=== PATIENT | female | born 1935 | race Caucasian/White ===

== ENCOUNTER 2017-02-22 05:03 | Observation (INO) | payer MEDICARE, BC ==
--- NOTE | ~2017-02-22 | DS ---
Discharge Summary [facility] [address] [place]. [address] NAME: MARY ELLEN PAUL : 35 STATUS : DIS Uziel PAT#: [id number] AGE: 81 ADM/REG DATE : 02/22/17 MR#: [id number] REPORT SERV DATE: 02/23/17 DICTATED BY: DATE: REPORT STATUS : Draft TRANSCRIBED BY: MODL DATE: 02/23/17 ADMISSION DATE: 02/22/2017 DISCHARGE DATE: 02/23/2017 DISCHARGE DIAGNOSES: 1. Abdominal pain, question post-herpetic neuralgia. 2. Back pain, question post-herpetic neuralgia. 3. Hyperkalemia. 4. Chronic kidney disease 4. 5. Hypertension. 6. History of coronary artery disease with percutaneous coronary intervention. 7. History of peripheral artery disease. 8. Gout. PROCEDURES AND IMAGIN02/22/2017, CT of the abdomen and pelvis without contrast showed gallstones, cardiomegaly, coronary artery disease. Questionable aortic stenosis. Small hiatal hernia. Diverticulosis. No acute pathology seen. HOSPITAL COURSE: Please refer to Dr. Arin Almanzar' H and P dated 02/22/2017 for complete details regarding the patient's admission. In brief, the patient was admitted by Dr. Almanzar for initial workup and management of her abdominal pain and back pain. The patient has had a history of shingles on her right abdomen and right back. The patient has completed a course of Valtrex. The patient has had oxycodone and hydrocodone during the night as well as the patient was started on Elavil 10 mg. The patient states that today she is pain-free. It was noted during her admission that her potassium was elevated up to 5.9. This morning, it is 4.6. For her elevated potassium, the patient was given regular insulin with D50 as well as Kayexalate and this problem has resolved. We will be discontinuing the patient's potassium supplement at home. The patient has also been on Avalide at home for her high blood pressure. At present, we are changing the patient to amlodipine due to her hyperkalemia and her chronic kidney disease stage 4. We are giving her prescription for three days and making an appointment with Dr. Wei Anderson for followup. The patient's blood pressure has been well controlled during her stay with the amlodipine which was initiated on 02/22/2017 with blood pressures between 116 to 166 over 58 to 71. The patient has had no complaints of chest pain during her stay. PHYSICAL EXAMINATION: VITAL SIGNS: Blood pressure is 155/66, temp is 97.7, O2 saturation is 97% on room, respirations are 17, heart rate is 64. HEENT: Head is atraumatic, normocephalic. Pupils are equal, round, and reactive to light and accommodation. Sclerae are clear and nonicteric. No palpable lymphadenopathy. NECK: Neck is supple with no obvious thyromegaly or lymphadenopathy. CARDIAC: No obvious rubs or gallops. The patient has a grade 3/6 systolic murmur. LUNGS: Clear to auscultation with normal respiratory effort. GI: Abdomen is soft and nontender with active bowel sounds in all four quadrants. The patient has normal bowel habitus. No palpable organomegaly. Discharge Summary [address] [place]. [address] NAME: MARY ELLEN PAUL : 35 STATUS : DIS Uziel PAT#: [id number] AGE: 81 ADM/REG DATE : 02/22/17 MR#: [id number] REPORT SERV DATE: 02/23/17 DICTATED BY: DATE: REPORT STATUS : Draft TRANSCRIBED BY: ORLANOD DATE: 02/23/17 EXTREMITIES: No significant edema, clubbing, or cyanosis. Dorsalis pedis and posterior tibial pulses are palpable bilaterally. MUSCULOSKELETAL: Moves all extremities x4. She is ambulatory with assistance. SKIN: Skin is warm and dry with normal color and turgor. The patient has scabs along her right mid back and under her right breast with small amount of oozing. Otherwise, the patient has yellow crusts. NEURO/PSYCH: The patient is alert and oriented x4, pleasant and cooperative. Cranial nerves II through XII are grossly intact. Affect is bright. No apparent anxiety or depression. DISCHARGE MEDICATIONS: Elavil 10 mg p.o. at bedtime, Norvasc 5 mg daily, Coreg 6.25 mg twice daily, Plavix 75 mg daily, folic acid 1 mg daily, Lopid 600 mg daily, pravastatin 40 mg daily, Centrum tablet once daily, gabapentin 100 mg starting 100 mg today and then increased to twice daily with breakfast and supper, and use Elavil at bedtime. The patient is to use twice daily for week and if no side affects, and if it is not controlling her pain, she can increase to three tablets daily as prescribed by Dr. Wei Anderson. It has been discussed with the family that if the patient is feeling bad and taking it three times a day, do not stop the medication, just cut back to twice daily. This has been extensively discussed with the patient and the daughter. It has also been discussed with the patient and the daughter that she should avoid contact with her grandchildren for another week until her scab quit oozing. The patient is to avoid contact with the granddaughter until the majority of her scabs are gone. ALLERGIES: THE PATIENT HAS NO KNOWN DRUG ALLERGIES. DISCHARGE INSTRUCTIONS: The patient is to follow up with her PCP, Dr. Wei Anderson in three days. Should the patient have any more exacerbated pain in her abdomen or mid back or any side effects from her medications or increase in blood pressure, she is to call her PCP or present to the ER. Approximately 30 minutes has been spent coordinating discharge care of this patient including [id number] encounter and summarization to her PCP. SLC/MODL Roseanna Galvez NP / [id number] CC: Victorino Hoyt M.D. Dannis Hood Jr., M.D.
--- NOTE | ~2017-02-22 | HP ---
History And Physical [place] [address] [place]. [address] NAME: MARY ELLEN PAUL : 35 STATUS : ADM Uziel PAT#: [id number] AGE: 81 ADM/REG DATE : 02/22/17 MR#: [id number] REPORT SERV DATE: 02/22/17 DICTATED BY: AINSLEY ALMANZAR DATE: 02/22/17 REPORT STATUS : Draft TRANSCRIBED BY: ORLANDO DATE: 02/22/17 DATE OF ADMISSION: 02/22/2017 CHIEF COMPLAINT: Abdominal pain. Back pain. HISTORY OF PRESENT ILLNESS: The patient is a very pleasant 81-year-old white female with a multitude of medical problems. She presents with stabbing sharp pain in her right abdomen and right side of her back. She had a previous episode of shingles that is still crusting over but she was treated with Valtrex. She states the pain is electrical or stabbing in quality. She previously was taking some narcotics for the pain but she has been off these since this past Wednesday. She really has no other complaints. She has had no diarrhea. No nausea, vomiting, or fever. She has had no cough. No shortness of breath. She had her last bowel movement yesterday which was normal. PAST MEDICAL HISTORY: 1. GERD. 2. Osteoarthritis. 3. CAD with history of PTCI. 4. Hypertension. 5. Gout. 6. Ulcers. 7. Nephrolithiasis. 8. CKD with baseline creatinine of around 1.7. 9. Diabetes mellitus. 10.Gallstones. 11.Recent shingles. FAMILY HISTORY: Positive for CAD, RA, and diabetes. SOCIAL HISTORY: She is a nondrinker, nonsmoker. She lives with her daughter. PAST SURGICAL HISTORY: She has had bilateral total knee arthroplasties, a CEA, and tonsillectomy. ALLERGIES: NO KNOWN DRUG ALLERGIES. HOME MEDICATIONS: Reviewed and attached. REVIEW OF SYSTEMS: Full 10-point review of systems obtained. Pertinent positives mentioned in the HPI. PHYSICAL EXAMINATION: VITAL SIGNS: Blood pressure was initially 233/112, on followup, it is 160s over 80s, temperature 97.9, pulse 75, respiratory rate 16, and sats 98%. GENERAL: Well-developed white female. HEENT: Normocephalic, atraumatic. Throat is clear. History And Physical [place] [id number] [place]. [address] NAME: MARY ELLEN PAUL : 35 STATUS : ADM Uziel PAT#: [id number] AGE: 81 ADM/REG DATE : 02/22/17 MR#: [id number] REPORT SERV DATE: 02/22/17 DICTATED BY: AINSLEY ALMANZAR DATE: 02/22/17 REPORT STATUS : Draft TRANSCRIBED BY: ORLANDO DATE: 02/22/17 NECK: Supple. HEART: 3/6 systolic ejection murmur noted mostly at the left upper sternal border. LUNGS: She has very discreet crackles in the right base. ABDOMEN: Soft, nontender, and nondistended. She has obvious shingles on her right abdomen extending around her right flank. They are crusted over. EXTREMITIES: Warm and dry. Pulses are 2+ at the feet. Skin is intact otherwise and she has no edema. LABORATORY AND X-RAY: Urinalysis shows nothing. CT abdomen and pelvis, gallstones, cardiomegaly, coronary artery disease, question aortic stenosis. CMP: Sodium 146, potassium 5.9, chloride 116, CO2 of 24, BUN and creatinine 47 and 1.82, glucose is 99, alkaline phosphatase is 191, lipase is 252. LFTs are normal, otherwise, lactate is 0.7. H and H are 11 and 34, white count 8, and platelets are 218. EKG showed normal sinus rhythm. She does have some slightly peaked T-waves, but these are chronic. ASSESSMENT/PLAN: 1. Abdominal pain likely post herpetic neuralgia related to recent shingles outbreak, it is in the right distribution and description of the pain is accurate as well as she has had a negative workup here in the ER. I recommend starting her on a low-dose tricyclic at bedtime, nortriptyline 10 mg at bedtime. We will also give her some p.r.n. Lortab for pain. Hopefully with management of her pain, the symptom will improve. She has already completed a course of Valtrex. 2. Mild hyperkalemia in the face of chronic kidney disease. I am going to hold her ARB, hold her potassium, change her over to Norvasc. Continue her Coreg. Hopefully her blood pressure will also improve. 3. Hypertension, again go ahead and give her morning Coreg today. Give her Norvasc 5 which is going to be a new medication in lieu of her ARB given her hyperkalemia. We will see how her blood pressure does. 4. History of coronary artery disease. 5. History of peripheral arterial disease. 6. History of gout. 7. Chronic kidney disease relatively stable. She is going to get 1 L of fluids over the next several hours. 8. Deep venous thrombosis prophylaxis. We will give her subcu heparin. 9. Disposition pending above aforementioned plan and workup. JANUARY/ORLANDO Ainsley Almanzar M.D. / [id number] CC: Dinesh Griffin Jr, MD History And Physical [address] [address] NAME: MARY ELLEN PAUL : 35 STATUS : ADM Uziel PAT#: [id number] AGE: 81 ADM/REG DATE : 02/22/17 MR#: [id number] REPORT SERV DATE: 02/22/17 DICTATED BY: AINSLEY ALMANZAR DATE: 02/22/17 REPORT STATUS : Draft TRANSCRIBED BY: ORLANDO DATE: 02/22/17 Wei Anderson M.D.
[~2017-02-22 05:03] MED LIST: ASAB PO; AVALIDE1 TA1 PO; C25 PO; COREG12 PO; COREG6 PO; COZAAR100 MG PO; FOLBIC; FOLIC PO; KLOR-CON M2020 MEQ PO; LOPID6 PO; NORV25 PO; NORV5 PO; PCET PO; PEP20 PO; PLAVIX PO; PRAVACHOL40 MG PO; ZOCOR40 PO
[2017-02-22 06:21] LABS: BASOPHILS 0.4 %; BASOPHILS ABSOLUTE 0.03 10/3/uL (0.0-0.16); EOSINOPHILS 1.6 %; EOSINOPHILS ABSOLUTE 0.13 10/3/uL (0.0-0.53); HEMATOCRIT 34.1 % (36.0-48.0); HEMOGLOBIN 11.4 g/dL (12.0-16.0); IMMATURE GRANULOCYTES 0.6 %; IMMATURE GRANULOCYTES ABSOLUTE 0.05 10/3/uL (0.0-0.11); LYMPHOCYTES 16.3 %; MEAN CORPUSCULAR HEMOGLOB 30.5 pg (26.0-34.0); MEAN CORPUSCULAR VOLUME 91.2 fL (80-100); MEAN PLATELET VOLUME 10.5 fL (9.2-13.0); MONOCYTES 6.3 %; NEUTROPHILS 74.8 %; NEUTROPHILS ABSOLUTE 5.95 10/3/uL (2.02-8.40); PLATELET COUNT 218 10/3/uL (150-400); RBC DISTRIBUTION WIDTH 13.8 % (12.0-16.0); RED CELL COUNT 3.74 10/6/uL (4.0-5.6)
[2017-02-22 06:22] LABS: MANUAL DIFF NO %; MEAN CORPUS HGB CONC 33.4 g/dL (32.0-36.0)
[2017-02-22 06:39] LABS: ALBUMIN 3.4 G/DL (3.5-5.0); ALKALINE PHOSPHATASE 191 U/L (45-117); CHLORIDE, SERUM 116 MMOL/L (96-112); CO2 (CARBON DIOXIDE) 24 MMOL/L (24-34); CREATININE 1.82 MG/DL (0.55-1.02); GFR AFRICAN AMERICAN 30 ML/MIN (>=60); GFR NON AFRICAN AMERICAN 26 ML/MIN (>=60); GLOBULIN 3.5 G/DL (2.5-4.1); SGPT(ALT) 21 U/L (5-65); SODIUM, SERUM 146 MMOL/L (135-148); TOTAL BILIRUBIN 0.6 MG/DL (0-1.2); TOTAL PROTEIN 6.9 G/DL (6.0-8.5)
[2017-02-22 06:40] LABS: BUN (BLOOD UREA NITROGEN) 47 MG/DL (6-23); GLUCOSE, SERUM 99 MG/DL (60-99); POTASSIUM, SERUM 5.9 MMOL/L (3.5-5.3)
[2017-02-22 06:41] LABS: CALCIUM, SERUM 11.6 MG/DL (8.5-10.4); SGOT(AST) 28 U/L (5-40)
[2017-02-22 08:23] LABS: ASCORBIC ACID (UR NOT ORDER) NEG (NEG); BILIRUBIN, URINE NEGATIVE (NEG); ER URINALYSIS TAT 0 Hrs 00 Mins; KETONE, URINE NEGATIVE (NEG); LEUKOCYTE ESTERASE(NOT OR NEG (NEG); NITRITE (URINE) NEG (NEG); WBC (NOT ORDERED) (RFLEX) 1 (0-5)
[2017-02-22] MEDS ORDERED: CENTRUM PO (08:39)
[2017-02-22] MEDS ORDERED: KDUR10 PO (08:40)
[2017-02-22] MEDS ORDERED: FOLIC PO (08:40)
[2017-02-22] MEDS ORDERED: COREG6 PO (08:40)
[2017-02-22] MEDS ORDERED: AVALIDE1 TA1 PO (08:40)
[2017-02-22] MEDS ORDERED: PLAVIX PO (08:40)
[2017-02-22] MEDS ORDERED: LOPID6 PO (08:40)
[2017-02-22] MEDS ORDERED: VALTREX5 PO (08:41)
[2017-02-22] MEDS ORDERED: PRAVACHOL40 MG PO (08:41)
[2017-02-22 18:33] LABS: CALCIUM, SERUM 10.9 MG/DL (8.5-10.4); CHLORIDE, SERUM 116 MMOL/L (96-112); CO2 (CARBON DIOXIDE) 24 MMOL/L (24-34); CREATININE 1.75 MG/DL (0.55-1.02); GFR AFRICAN AMERICAN 31 ML/MIN (>=60); GFR NON AFRICAN AMERICAN 27 ML/MIN (>=60); GLUCOSE, SERUM 93 MG/DL (60-99); POTASSIUM, SERUM 5.1 MMOL/L (3.5-5.3); SODIUM, SERUM 147 MMOL/L (135-148)
[2017-02-22 18:34] LABS: BUN (BLOOD UREA NITROGEN) 42 MG/DL (6-23)
[2017-02-23 05:51] LABS: BASOPHILS 0.5 %; BASOPHILS ABSOLUTE 0.03 10/3/uL (0.0-0.16); EOSINOPHILS 2.2 %; EOSINOPHILS ABSOLUTE 0.12 10/3/uL (0.0-0.53); HEMATOCRIT 31.5 % (36.0-48.0); IMMATURE GRANULOCYTES 0.4 %; IMMATURE GRANULOCYTES ABSOLUTE 0.02 10/3/uL (0.0-0.11); LYMPHOCYTES 26.7 %; LYMPHOCYTES ABSOLUTE 1.47 10/3/uL (0.67-4.30); MANUAL DIFF NO %; MEAN CORPUS HGB CONC 31.7 g/dL (32.0-36.0); MEAN CORPUSCULAR HEMOGLOB 29.9 pg (26.0-34.0); MEAN PLATELET VOLUME 10.4 fL (9.2-13.0); MONOCYTES 8.9 %; MONOCYTES ABSOLUTE 0.49 10/3/uL (0.21-1.20); NEUTROPHILS 61.3 %; NEUTROPHILS ABSOLUTE 3.38 10/3/uL (2.02-8.40); PLATELET COUNT 176 10/3/uL (150-400); RBC DISTRIBUTION WIDTH 13.9 % (12.0-16.0); RED CELL COUNT 3.35 10/6/uL (4.0-5.6); WHITE BLOOD CELLS 5.5 10/3/uL (4.5-10.5)
[2017-02-23 06:00] LABS: BUN (BLOOD UREA NITROGEN) 39 MG/DL (6-23); CHLORIDE, SERUM 116 MMOL/L (96-112); CO2 (CARBON DIOXIDE) 26 MMOL/L (24-34); CREATININE 1.79 MG/DL (0.55-1.02); GFR AFRICAN AMERICAN 30 ML/MIN (>=60); GFR NON AFRICAN AMERICAN 26 ML/MIN (>=60); GLUCOSE, SERUM 79 MG/DL (60-99); POTASSIUM, SERUM 4.6 MMOL/L (3.5-5.3); SODIUM, SERUM 146 MMOL/L (135-148)
[2017-02-23] MEDS ORDERED: NORV5 PO (09:51)
[2017-02-23] MEDS ORDERED: AMIT10 PO (09:51)
[2017-02-23] MEDS ORDERED: NEUR100 PO (09:54)
== END 2017-02-23 10:48 | disposition home or self-care (01) ==
LOC: ER 05:03 → CDU1 11:00
PROVIDERS: Internal Medicine; Specialist
DX: R10.9 Unspecified abdominal pain (principal); M54.9 Dorsalgia, unspecified; E87.5 Hyperkalemia; M10.9 Gout, unspecified; I25.10 Atherosclerotic heart disease of native coronary artery without angina pectoris; I12.9 Hypertensive chronic kidney disease with stage 1 through stage 4 chronic kidney disease, or unspecified chronic kidney disease; E11.22 Type 2 diabetes mellitus with diabetic chronic kidney disease; I73.9 Peripheral vascular disease, unspecified; N18.4 Chronic kidney disease, stage 4 (severe); K21.9 Gastro-esophageal reflux disease without esophagitis; K80.80 Other cholelithiasis without obstruction; M19.90 Unspecified osteoarthritis, unspecified site; Z87.442 Personal history of urinary calculi; Z86.19 Personal history of other infectious and parasitic diseases; Z82.49 Family history of ischemic heart disease and other diseases of the circulatory system; Z83.3 Family history of diabetes mellitus; Z82.61 Family history of arthritis; Z96.653 Presence of artificial knee joint, bilateral; Z90.89 Acquired absence of other organs; Z79.02 Long term (current) use of antithrombotics/antiplatelets; Z79.899 Other long term (current) drug therapy; Z98.890 Other specified postprocedural states
CPT/HCPCS: 74176; 80048; 80053; 81001; 83605; 83690; 85025; 93005; 96372; 96374; 96375; 99285; A9270-GY; G0378; J2405